=== PATIENT | male | born 1975 | race American Indian/Alaskan Native ===

== ENCOUNTER 2016-09-06 12:46 | Emergency (ER) | payer OTHER ==
[2016-09-06 13:51] LABS: Anion Gap 32 mmol/L; BUN/Creatinine Ratio 12.66; Blood Urea Nitrogen 19 mg/dL (9-20); Calcium 9.5 mg/dL (8.4-10.2); Carbon Dioxide 13 mmol/L (22-30); Chloride 95.2 mmol/L (98-107); Glucose 197 mg/dL (75-100); Potassium 4.1 mmol/L (3.6-5.0); Sodium 136 mmol/L (137-145)
--- NOTE | 2016-09-06 14:16 | Cat Scan Report ---
FINAL REPORT PROCEDURE: CT HEAD/BRAIN WO CON TECHNIQUE: Computerized tomography of the head was performed without contrast material. HISTORY: fall, pain, injury COMPARISON: No prior studies are available for comparison. FINDINGS: Postsurgical changes are seen in the right frontal region. There has been previous osteotomy. Bone flap is in place. There is a small scalp hematoma overlying the bone flap. No skull fracture is visualized. There is a small to moderate-sized area of encephalomalacia involving the right frontal lobe anteriorly. Brain density is otherwise unremarkable. There is no evidence of intracranial hemorrhage. No parenchymal hemorrhage, mass lesions or mass effect are identified. No abnormal extra-axial fluid collections or masses are seen. There are small nonspecific dural calcifications at the osteotomy site. Visualized portions of the paranasal sinuses and mastoid air cells are clear. IMPRESSION: Prior craniotomy right frontal region. Bone flap is in place. Small to moderate size area of encephalomalacia visualize right frontal lobe. No evidence of skull fracture or intracranial hemorrhage. No acute intracranial abnormalities are seen. Small scalp hematoma seen overlying the bone flap.
--- NOTE | 2016-09-06 14:22 | Cat Scan Report ---
FINAL REPORT PROCEDURE: CT CERVICAL SPINE WO CON TECHNIQUE: Computerized tomography of the cervical spine was performed from the skull base to T1 without contrast material. HISTORY: fall, pain, injury COMPARISON: No prior studies are available for comparison. FINDINGS: No fracture or subluxation is visualized. Posterior elements are intact. Prevertebral soft tissues appear normal. Small anterior osteophytic spurs are present at C4-C5, C5-C6 and C6-C7. Posterior osteophytic spurs are also present each of these levels. There appears to be a mild diffuse posterior disc bulge also at the C5-C6 level. No focal disc herniation or spinal stenosis is seen. IMPRESSION: No evidence of fracture or subluxation. Mild degenerative disc disease as described..
[2016-09-06 14:26] LABS: Hematocrit 43.6 % (35.5-45.6); Hemoglobin 13.9 gm/dl (11.8-15.2); Mean Corpuscular HGB Conc 32 % (32-34); Mean Corpuscular Volume 78 fl (84-94); Red Blood Count 5.61 M/mm3 (3.65-5.03); Red Cell Distribution Width 15.3 % (13.2-15.2); White Blood Count 16.8 K/mm3 (4.5-11.0)
[2016-09-06 14:37] LABS: Mean Corpuscular Hemoglobin 25 pg (28-32)
[2016-09-06 15:02] LABS: Basophils % (Manual) 0 % (0.0-1.8); Blastocytes % (Manual) 0 %; Eosinophils % (Manual) 0 % (0.0-4.3)
[2016-09-06 15:03] LABS: Diff Status Complete; Hypochromasia 1+
[2016-09-06 15:07] LABS: Platelet Count 268 K/mm3 (140-440)
[2016-09-06] MEDS ORDERED: NACL 0.9% 500 ML 500 ML IV ONE (16:42)
[2016-09-06] MEDS ORDERED: KEPPRA 1,000 MG/NS 0.75% 100ML 1,000 MG/100 ML BAG IV ONE (16:46)
--- NOTE | 2016-09-06 16:46 | Emergency Department Report ---
HPI - General Chief Complaint: Seizure Time Seen by Provider: 09/06/16 16:01 - HPI HPI: This is a 41-year-old Afro-Tajik male presents to the emergency department by EMS after he had a witnessed seizure at work at [facility] earlier today. The patient says that he did not have any particular aura and felt fine prior to the seizure. Since waking up when EMS arrived, the patient has been having pain to the head and upper back as well as a hematoma and swelling to the right side of the forehead. The patient last had a seizure in 1992. He is not on any seizure medications because it has been 21 years since his last one. 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 The patient has a primary care doctor in [facility]. He denies any vision change, chest pain, shortness of breath, nausea, vomiting or fever. ED Past Medical Hx - Past Medical History Hx Seizures: Yes (last seizure 1992) - Surgical History Past Surgical History?: Yes Additional Surgical History: brain surgery 1991 - Social History Smoking Status: Never Smoker Substance Use Type: None - Medications Home Medications: Home Medications Medication Instructions Recorded Confirmed Last Taken Type HYDROcodone/APAP 5-325 [[place] 1 each PO Q6HR PRN #12 tablet 09/06/16 Unknown Rx 5/325] ED Review of Systems ROS: Stated complaint: SEIZURE Other details as noted in HPI Comment: All other systems reviewed and negative Constitutional: denies: chills, fever Eyes: denies: eye pain, eye discharge, vision change ENT: denies: ear pain, throat pain Respiratory: denies: cough, shortness of breath, wheezing Cardiovascular: denies: chest pain, palpitations Gastrointestinal: denies: abdominal pain, nausea, diarrhea Genitourinary: denies: urgency, dysuria Musculoskeletal: back pain. denies: arthralgia Skin: denies: rash, lesions Neurological: headache, other (seizure) Physical Exam - Physical Exam Vital Signs: Vital Signs 09/06/16 09/06/16 09/06/16 13:06 13:07 13:08 Temperature Blood Pressure 106/66 106/66 O2 Sat by Pulse 93 91 94 Oximetry 09/06/16 09/06/16 13:10 13:23 Temperature 98.2 F Blood Pressure 106/66 O2 Sat by Pulse 93 Oximetry Physical Exam: GENERAL: The patient is well-developed well-nourished. HEENT: Normocephalic. Patient has a non-expanding hematoma to the right lateral forehead with a abrasion on top. No current bleeding and no signs of infection. Extraocular motions are intact. Patient has moist mucous membranes. Pupils equal reactive to light bilaterally. No nystagmus. No septal hematoma. Oral pharynx is clear. NECK: Supple. Take is midline. Full range of motion. Nontender to palpation. CHEST/LUNGS: Clear to auscultation. There is no respiratory distress noted. HEART/CARDIOVASCULAR: Regular. There is no tachycardia. There is no gallop rub or murmur. ABDOMEN: Abdomen is soft, nontender. Patient has normal bowel sounds. There is no abdominal distention. SKIN: Patient has a non-expanding hematoma to the right lateral forehead with a abrasion on top. No current bleeding and no signs of infection. NEURO: The patient is awake, alert, and oriented. The patient is cooperative. The patient has no focal neurologic deficits. The patient has normal speech. Cranial nerves II through XII grossly intact. No pronator drift. No dysmetria. MUSCULOSKELETAL: There is no tenderness or deformity. There is no limitation range of motion. There is no evidence of acute injury. Muscle strength 5 out of 5 for upper and lower extremity bilaterally including EHL. Radial pulses +2 over 4 bilaterally. BACK: No midline lumbar tenderness to palpation or deformity. Patient has tenderness to palpation to the mid upper thoracic back/spine to both the midline and bilateral paraspinal regions. No step-off or deformity. ED Course Vital Signs 09/06/16 09/06/16 09/06/16 13:06 13:07 13:08 Temperature Blood Pressure 106/66 106/66 O2 Sat by Pulse 93 91 94 Oximetry 09/06/16 09/06/16 13:10 13:23 Temperature 98.2 F Blood Pressure 106/66 O2 Sat by Pulse 93 Oximetry ED Medical Decision Making - Lab Data Result diagrams: 09/06/16 13:15 09/06/16 13:15 - EKG Data -: EKG Interpreted by Sd EKG shows normal: sinus rhythm, axis, intervals, QRS complexes, ST-T waves Rate: tachycardia (102 bpm) - EKG Data When compared to previous EKG there are: previous EKG unavailable Interpretation: normal EKG (with mild sinus tach) - Radiology Data Radiology results: report reviewed CT the head without contrast shows prior craniotomy to the right frontal region. Both that is in place. Small moderate size area of the [place] see a visualized the right frontal lobe. No evidence of skull fracture or intracranial hemorrhage. No acute intercranial abnormality seen. Small scalp hematoma seen overlying the bone flap. CT of the cervical spine without contrast did not show any fracture, subluxation or any acute process. X-ray of the thoracic spine shows minimal scoliosis. There is mild anterior wedging of T6, T7 and T8 vertebral bodies of indeterminate age. No prior studies for comparison. CT of the thoracic spine shows compression fractures of T4 and T5 which appear likely acute. - Medical Decision Making 41-year-old male presents the emergency department after a witnessed seizure at work which was the first seizure he has had and 21 years. Patient is been awake and alert since being in the emergency department. His only major complaint is back pain in the upper back region. There is no step-off or deformity. There are no focal, motor or sensory deficits. No numbness or paresthesias. Cranial nerves are intact. Full muscle strength upper and lower extremity. Patient had a CT of the head that did not show any acute intracranial abnormalities. CT of the cervical spine did not show any fracture or subluxation or dislocation. Patient was given an x-ray of the thoracic back to start that showed some possible anterior wedging of the middle thoracic bony spine but suggested further imaging. A CT was done that confirms compression fraction to the anterior portion of T4 and T5. Patient is been in the emergency department for multiple hours and has not had any further seizure- like activity. He was given some pain medication for his back and a dose of Keppra. He has good follow-up with primary care. He has been encouraged to follow up with a neurologist as well to see if he should be started on seizure medications. He also has been given a referral for our orthopedist group that has connections to [facility] to follow up regarding the compression fracture. He will return to the ER with any worsening of symptoms or any acute distress. He understands agrees to plan. - Differential Diagnosis seizure, syncopal, brain bleed, CVA, vertebral fracture, spasm Critical Care Time: No Critical care attestation.: If time is entered above; I have spent that time in minutes in the direct care of this critically ill patient, excluding procedure time. ED Disposition Clinical Impression: Seizure Fall Qualifiers: Encounter type: initial encounter Qualified Code(s): W19.XXXA - Unspecified fall, initial encounter Thoracic compression fracture Qualifiers: Encounter type: initial encounter Fracture type: closed Qualified Code(s): S22.000A - Wedge compression fracture of unspecified thoracic vertebra, initial encounter for closed fracture Back pain Qualifiers: Back pain location: thoracic back pain Chronicity: acute Back pain laterality: unspecified Qualified Code(s): M54.6 - Pain in thoracic spine Disposition: DISCHARGED TO HOME OR SELFCARE Is pt being admited?: No Condition: Stable Instructions: Vertebral Compression Fracture (ED), New-Onset Seizure in Adults (ED) Additional Instructions: Please follow-up with your primary care doctor regarding your seizure and see if he wants to refer you to a neurologist. I have also given you a referral for a neurologist just in case, Dr. Novak. I have also given you a referral for a local orthopedist, Dr. Sapp, to follow up regarding your thoracic compression fractures. Please follow-up in the next few days regarding this injury. Return to the emergency department with any trouble walking due to weakness, numbness, problems with bowel movements or urination, or with any acute distress. You've been prescribed a medication that is sedating. Therefore this medication cannot be mixed with alcohol, or taken prior to driving, working, or being responsible for children. Prescriptions: HYDROcodone/APAP 5-325 [[place] 5/325] 1 each PO Q6HR PRN #12 tablet PRN Reason: Pain Referrals: PRIMARY CAREMD [Primary Care Provider] - 3-5 Days CRISTA NOVAK MD [Staff Physician] - 3-5 Days VANNESSA SAPP MD [Staff Physician] - 3-5 Days Forms: Work/School Release Form(ED) Time of Disposition: 19:42
[2016-09-06] MEDS ORDERED: MORPHINE IV ONE (16:47)
--- NOTE | 2016-09-06 18:28 | XRay Report ---
FINAL REPORT PROCEDURE: XR SPINE THORACIC 3V TECHNIQUE: Thoracic spine radiographs including AP, lateral, and Swimmer's views. CPT 13588 HISTORY: back pain COMPARISON: No prior studies are available for comparison. FINDINGS: There appears to be mild anterior wedging of the T6, T7 and T8 vertebral bodies. Age of these deformities is uncertain. There are no prior studies for comparison. Bone density appears normal. There appears to be minimal thoracic scoliosis convex the right apex at T11. No other abnormalities are seen. IMPRESSION: Minimal scoliosis. Mild anterior wedging T6, T7 and T8 vertebral bodies of indeterminate age. There are no prior studies for comparison. Correlation with physical exam recommended. If clinically indicated CT scan or MRI of the thoracic spine could be obtained for further evaluation..
--- NOTE | 2016-09-06 19:22 | Cat Scan Report ---
FINAL REPORT EXAM: CT THORACIC SPINE WO CON HISTORY: Fall, back pain TECHNIQUE: CT of the thoracic spine without contrast PRIORS: None. FINDINGS: There are compression fractures of T4 and T5 with approximately 30 percent loss of height. These appear likely acute there is some cortical disruption seen on axial images. Remaining levels demonstrate normal height and alignment No evidence for retropulsion of fracture fragments. The spinous processes and posterior elements are intact. IMPRESSION: Compression fractures of T4 and T5 which appear likely acute.
[2016-09-06 20:41] VITALS: BP 116/69
== END 2016-09-06 20:56 | disposition home or self-care (01) ==
LOC: ED 12:46
DX: S22.000A Wedge compression fracture of unspecified thoracic vertebra, initial encounter for closed fracture (principal); R56.9 Unspecified convulsions; M54.6 Pain in thoracic spine; W18.39XA Other fall on same level, initial encounter; Y93.89 Activity, other specified; Y99.8 Other external cause status; Y92.89 Other specified places as the place of occurrence of the external cause
CPT/HCPCS: 36415; 70450; 72072; 72125; 72128; 80048; 82962; 84443; 84484; 85007; 85025; 93005; 93010; 96365; 96375; 99285; J1953; J2270; J7040